=== PATIENT | female | born 1955 | race Hispanic/Latino ===

== ENCOUNTER → 2023-09-06 | Emergency (ER) | payer BC ==
[~2023-09-06] MED LIST: FENTANYL CITR 100 MCG/2 ML ONE; HYDROMORPHONE HCL 1 MG/ML INJ ONE; NA CHLORIDE 0.9% 500 ML ONE; ONDANSETRON 4 MG/2 ML VIAL ONE
--- NOTE | 2023-09-06 15:20 | RAD REPORT ---
EXAM DESCRIPTION: RAD - Wrist Left 3 View - 09/06/2023 2:06 pm CLINICAL HISTORY: Pain;Deformity COMPARISON: No comparisons TECHNIQUE: Left wrist, 3 views. FINDINGS: Mildly comminuted, impacted, and slightly posteriorly displaced distal radius fracture at the level of the metaphysis. Soft tissue swelling about the wrist. There is no dislocation or periost eal reaction noted. No suspicious bony finding. No foreign body or soft tissue gas. IMPRESSION: Distal radius fracture as above.
--- NOTE | 2023-09-06 17:15 | RAD REPORT ---
EXAM DESCRIPTION: RAD - Wrist Left 2 View - 09/06/2023 4:43 pm CLINICAL HISTORY: post splint placement COMPARISON: Wrist Left 3 View dated 09/06/2023 TECHNIQUE: Left wrist, 3 views. FINDINGS: Improved alignment of the distal radius fracture. Residual mild posterior offset of the ma kenzie distal fragment by approximately 3 mm. Fiberglass cast has been placed. There is no dislocation o r periosteal reaction noted. No suspicious bony finding. IMPRESSION: Improved alignment following closed reduction of the distal radius fracture as above.
--- NOTE | 2023-09-06 17:45 | ER ---
Nurse's Notes [facility] Name: Suellen Adams Age: 67 yrs Sex: Female : 1955 Arrival Date: 09/06/2023 Time: 13:05 Bed 17 Private MD: Diagnosis: Displaced Distal Radius Fracture Left Wrist Presentation: 09/06 13:15 Chief complaint: Patient states: LEFT WRIST INJURY AFTER FALLING AND CATCHING SELF. db NOTED DEFORMITY WITH BRUISING. Coronavirus screen: Vaccine status: Patient reports being unvaccinated. Client denies travel out of the [place] in the last 14 days. At this time, the client does not indicate any symptoms associated with coronavirus-19. Ebola Screen: Patient negative for fever greater than or equal to 101.5 degrees Fahrenheit, and additional compatible Ebola Virus Disease symptoms Patient denies exposure to infectious person. Patient denies travel to an Ebola-affected area in the 21 days before illness onset. No symptoms or risks identified at this time. Initial Sepsis Screen: Does the patient meet any 2 criteria? No. Patient's initial sepsis screen is negative. Does the patient have a suspected source of infection? No. Patient's initial sepsis screen is negative. Risk Assessment: Do you want to hurt yourself or someone else? Patient reports no desire to harm self or others. Onset of symptoms was September 06, 2023. 13:15 Method Of Arrival: Ambulatory db 13:15 Acuity: MARCUS 3 db Triage Assessment: 13:16 General: Appears in no apparent distress. comfortable, Behavior is calm, cooperative. db Pain: Complains of pain in left hand and left arm. Neuro: Level of Consciousness is awake, alert, obeys commands, Oriented to person, place, time, situation, Speech is normal. Musculoskeletal: Circulation, motion, and sensation intact. Capillary refill < 3 seconds, Range of motion: limited in left wrist Bony deformity noted of left arm. Injury Description: Bruise sustained to left arm. Historical: - Allergies: 13:16 Morphine; db - Immunization history:: Adult Immunizations unknown. - Social history:: Smoking status: Patient denies any tobacco usage or history of. Screenin:30 [facility] ED Fall Risk Assessment (Adult) History of falling in the last 3 months, ko1 including since admission Yes- single mechanical fall (1 pt) Confusion or Disorientation No (0 pts) Intoxicated or Sedated No (0 pts) Impaired Gait No (0 pts) Mobility Assist Device Used No (0 pt) Altered Elimination No (0 pt) Score/Fall Risk Level 0 - 2 = Low Risk Oriented to surroundings, Maintained a safe environment, Educated pt \T\ family on fall prevention, incl call for assistance when getting out of bed, Assessed \T\ reinforced patient's understanding of fall precautions, Provided non-skid footwear, Hourly rounding (assess needs \T\ fall precautionary measures) done, Used ambulatory aids as needed (educated on \T\ assisted with), Used gait belt as appropriate. Abuse screen: Denies threats or abuse. Denies injuries from another. Nutritional screening: No deficits noted. Tuberculosis screening: No symptoms or risk factors identified. Assessment: 16:00 Neuro: No deficits noted. Cardiovascular: No deficits noted. Respiratory: No deficits ko1 noted. GI: No deficits noted. : No deficits noted. EENT: No deficits noted. Derm: No deficits noted. Musculoskeletal: Bony deformity noted of left wrist Swelling present in left wrist. Vital Signs: 13:15 BP 147 / 83; Pulse 84; Resp 16; Temp 97.7(TE); Pulse Ox 95% ; Weight 81.65 kg; Height 5 db ft. 4 in. ; Pain 4/10; 16:30 BP 134 / 78; Pulse 80; Resp 16; Pulse Ox 97% ; ko1 16:43 BP 141 / 82; Pulse 82; Resp 15; Pulse Ox 98% ; ko1 18:05 BP 166 / 81; Pulse 72; Resp 16; Pulse Ox 98% ; ko1 18:34 BP 155 / 92; Pulse 74; Resp 16; Pulse Ox 98% ; ko1 13:15 Body Mass Index 30.90 (81.65 kg, 162.56 cm) db 13:15 Pain Scale: Adult db ED Course: 13:10 Patient arrived in ED. im 13:16 Triage completed. db 13:16 Arm band placed on right wrist. Patient placed in an exam room. db 13:34 Bradford Hatch PA is PHCP. cp 13:34 Michoacano Hernandez MD is Attending Physician. cp 13:49 Lainey Mckeon RN is Primary Nurse. ko1 14:08 XRAY Wrist LEFT 3 view In Process Unspecified. EDMS 16:00 Inserted saline lock: 22 gauge in right antecubital area, using aseptic technique. ko1 16:30 Patient has correct armband on for positive identification. Bed in low position. Call ko1 light in reach. Side rails up X 1. Provided Education on: splint. Pulse ox on. NIBP on. Door closed. Noise minimized. Warm blanket given. 16:30 Assist provider with fracture care of left arm Fracture is closed. Obvious deformity is ko1 noted. Circulation, motor and sensation is intact. Set up for procedure. Performed by Bradford FLORES Immobilized with OCL splint, Post immobilization, circulation, motor and sensation remain intact. Patient tolerated well. 16:31 Orthoglass splint: Sugar tong splint applied on left arm. jl7 16:45 XRAY Wrist LEFT 2 view In Process Unspecified. EDMS 17:44 Kt Beltre MD is Referral Physician. cp 19:08 IV discontinued, intact, bleeding controlled, No redness/swelling at site. Pressure ko1 dressing applied. Administered Medications: 14:09 Drug: fentaNYL (PF) IVP 25 mcg IVP once Route: IVP; Site: right antecubital; ko1 14:09 Drug: Ondansetron IVP 4 mg IVP once; over 2 minutes Route: IVP; Site: right antecubital;ko1 16:20 Drug: HYDROmorphone IVP 1 mg IVP once Route: IVP; Site: right antecubital; jl7 16:20 Drug: Ondansetron IVP 4 mg IVP once; over 2 minutes Route: IVP; Site: right antecubital;jl7 17:33 Drug: NS 0.9% IV 500 ml IV at bolus continuous Route: IV; Rate: bolus; Site: right ko1 antecubital; 17:33 Drug: Ondansetron IVP 4 mg IVP once; over 2 minutes Route: IVP; Site: right antecubital;ko1 Medication: 16:30 VIS not applicable for this client. ko1 Outcome: 17:44 Discharge ordered by . cp 19:08 Discharged to home ambulatory, with family, ko1 19:08 Condition: stable 19:08 Discharge instructions given to patient, Instructed on discharge instructions, follow up and referral plans. medication usage, Demonstrated understanding of instructions, follow-up care, medications, splint care, Prescriptions given X 2, 19:09 Patient left the ED. ko1 Signatures: Dispatcher [employer] EDMS Bradford Hatch PA PA cp Leal, Jahala RN RN jl7 Lainey Mckeon RN RN ko1 Ellen Hankins RN RN db Alma Coffey
--- NOTE | 2023-09-06 17:45 | EDPHYS ---
Physician Documentation [facility] Name: Suellen Adams Age: 67 yrs Sex: Female : 1955 Arrival Date: 09/06/2023 Time: 13:05 Bed 17 Private MD: ED Physician Michoacano Hernandez HPI: 09/06 14:00 This 67 yrs old Female presents to ER via Ambulatory with complaints of Wrist cp Injury - left. 14:00 The patient or guardian reports decreased range of motion, deformity, injury, pain. The cp complaints affect the right wrist diffusely. Context: The problem was sustained at home, resulted from a fall, on an outstretched hand. Onset: The symptoms/episode began/occurred just prior to arrival. Associated signs and symptoms: The patient has no apparent associated signs or symptoms. Historical: - Allergies: 13:16 Morphine; db - Immunization history:: Adult Immunizations unknown. - Social history:: Smoking status: Patient denies any tobacco usage or history of. ROS: 14:05 Constitutional: Negative for body aches, chills, fever, poor PO intake, cp 14:05 Eyes: Negative for injury, pain, redness, and discharge, cp 14:05 ENT: Negative for drainage from ear(s), ear pain, sore throat, difficulty swallowing, difficulty handling secretions, 14:05 Cardiovascular: Negative for chest pain, palpitations, 14:05 Respiratory: Negative for cough, shortness of breath, wheezing, 14:05 Abdomen/GI: Negative for abdominal pain, vomiting, diarrhea, constipation, 14:05 Back: Negative for pain at rest, pain with movement, 14:05 Neuro: Negative for altered mental status, dizziness, headache, loss of consciousness, syncope, weakness, 14:05 All other systems are negative, Exam: 14:10 Constitutional: The patient appears in no acute distress, alert, awake, non-toxic, well cp developed, well nourished, uncomfortable, 14:10 Head/Face: Normocephalic, atraumatic. cp 14:10 Chest/axilla: Inspection: normal, 14:10 Cardiovascular: Rate: normal, Rhythm: regular, Pulses: Pulses are 2+ in left radial artery. 14:10 Respiratory: the patient does not display signs of respiratory distress, Respirations: normal, no use of accessory muscles, no retractions, 14:10 Abdomen/GI: Inspection: abdomen appears normal, Palpation: abdomen is soft and non-tender, in all quadrants, 14:10 Back: pain, is absent, ROM is normal, 14:10 Musculoskeletal/extremity: Extremities: grossly normal except: noted in the left wrist: decreased ROM, deformity, ecchymosis, pain, swelling, tenderness, the left hand and left arm Sensation intact. 14:10 Skin: intact of left wrist. 14:10 Neuro: Orientation: to person, place \T\ time. Mentation: is normal, Motor: moves all fours, strength is normal, Sensation: no obvious gross deficits, Vital Signs: 13:15 BP 147 / 83; Pulse 84; Resp 16; Temp 97.7(TE); Pulse Ox 95% ; Weight 81.65 kg; Height 5 db ft. 4 in. ; Pain 4/10; 16:30 BP 134 / 78; Pulse 80; Resp 16; Pulse Ox 97% ; ko1 16:43 BP 141 / 82; Pulse 82; Resp 15; Pulse Ox 98% ; ko1 18:05 BP 166 / 81; Pulse 72; Resp 16; Pulse Ox 98% ; ko1 18:34 BP 155 / 92; Pulse 74; Resp 16; Pulse Ox 98% ; ko1 13:15 Body Mass Index 30.90 (81.65 kg, 162.56 cm) db 13:15 Pain Scale: Adult db Procedures: 17:45 Reduction: of the left wrist, using manipulation, Immobilized with sugartong orthoglass cp splint. Patient tolerated well. Post reduction film - reveals improved alignment. MDM: 13:34 Patient medically screened. cp 17:45 Data reviewed: vital signs, nurses notes, radiologic studies, plain films. cp 17:45 Differential diagnosis: dislocation, open fracture, closed fracture, sprain. I cp considered the following discharge prescriptions or medication management in the emergency department Medications were administered in the Emergency Department. See MAR. Independent interpretation of the following test(s) in the Emergency Department X-Ray: My interpretation is images of left wrist show fracture of distal left radius. Counseling: I had a detailed discussion with the patient and/or guardian regarding the historical points, exam findings, and any diagnostic results supporting the discharge/admit diagnosis, radiology results, the need for outpatient follow up, for definitive care, a orthopedic surgeon, to return to the emergency department if symptoms worsen or persist or if there are any questions or concerns that arise at home. Response to treatment: the patient's symptoms have markedly improved after treatment, and as a result, I will discharge patient. 09/06 13:53 Order name: XRAY Wrist LEFT 3 view; Complete Time: 17:43 cp 09/06 16:29 Order name: XRAY Wrist LEFT 2 view; Complete Time: 17:43 cp 09/06 13:53 Order name: IV; Complete Time: 14:00 cp 09/06 15:19 Order name: Splint - Sugar Tong - Forearm; Complete Time: 16:29 cp 09/06 15:19 Order name: Sling; Complete Time: 16:30 cp Administered Medications: 14:09 Drug: fentaNYL (PF) IVP 25 mcg IVP once Route: IVP; Site: right antecubital; ko1 14:09 Drug: Ondansetron IVP 4 mg IVP once; over 2 minutes Route: IVP; Site: right antecubital;ko1 16:20 Drug: HYDROmorphone IVP 1 mg IVP once Route: IVP; Site: right antecubital; jl7 16:20 Drug: Ondansetron IVP 4 mg IVP once; over 2 minutes Route: IVP; Site: right antecubital;jl7 17:33 Drug: NS 0.9% IV 500 ml IV at bolus continuous Route: IV; Rate: bolus; Site: right ko1 antecubital; 17:33 Drug: Ondansetron IVP 4 mg IVP once; over 2 minutes Route: IVP; Site: right antecubital;ko1 Disposition: 09/07 07:05 Co-signature as Attending Physician, Michoacano Hernandez MD I reviewed the patient's care rt provided by the Advanced Practice Provider and agree with the diagnosis and treatment plan. Disposition Summary: 09/06/23 17:44 Discharge Ordered Notes: Location: Home cp Problem: new cp Symptoms: have improved cp Condition: Stable cp Diagnosis - Displaced Distal Radius Fracture Left Wrist cp Followup: cp - With: Kt Beltre MD - When: 2 - 3 days - Reason: Recheck today's complaints Discharge Instructions: - Discharge Summary Sheet cp - Wrist Fracture Treated With ORIF cp Forms: - Medication Reconciliation Form cp - Thank You Letter cp - Antibiotic Education cp - Prescription Opioid Use cp - Patient Portal Instructions cp - Leadership Thank You Letter cp Prescriptions: - acetaminophen-codeine 300-30 mg Oral tablet - take 2 tablet ORAL route 3 times per day as needed for pain; 16 tablet; cp Refills: 0, Product Selection Permitted - Ibuprofen 800 mg Oral Tablet - take 1 tablet ORAL route every 8 hours As needed take with food; 30 tablet; cp Refills: 0, Product Selection Permitted Signatures: Dispatcher [employer] EDBradford Walton PA PA cp Leal, Jahala RN RN jl7 Lainey Mckeon RN RN ko1 Ellen Hankins, RN RN db Michoacano Hernandez MD MD rt
[2023-09-06 19:35] VITALS: TEMP 97.7; O2SAT 98
[2023-09-06 19:42] VITALS: BP 155/92
== END ==
LOC: ER 13:05
PROC: 0PSJ35Z Reposition Left Radius with External Fixation Device, Percutaneous Approach (ICD-10-PCS; principal; 2023-09-06)
DX: S52.502A Unspecified fracture of the lower end of left radius, initial encounter for closed fracture (principal); Z88.5 Allergy status to narcotic agent
CPT/HCPCS: 73110; 73100; 96375; 96374; 99285; 25605; J3010; J1170; J2405 ×3; J7040